=== PATIENT | male | born 1980 | race Two or more races ===

== ENCOUNTER 2020-09-15 12:14 | Emergency (ER) | payer MEDICAID ==
[~2020-09-15] VITALS: Ht 170.2 cm; Wt 72.6 kg
--- NOTE | 2020-09-15 12:24 | NUR ---
[email or web address], medical screening exam in progress
--- NOTE | 2020-09-15 13:23 | NUR ---
Crutches were dispensed. Patient was instructed with certified court interpreter Estela (toll bridge operator/ER registration staff) on proper use of crutches. Patient was able to demonstrate correct use of crutches. Patient discharged to home in stable condition. Written and verbal after care instructions were given in Occitan as well. Patient verbalized understanding & compliance of instructions. Stressed follow up with Dr Borja or any orthopedic doctor and return to ER for worsening s/s.
== END 2020-09-15 13:27 | disposition home or self-care (01) ==
LOC: ER 12:17
DX: S82.64XA Nondisplaced fracture of lateral malleolus of right fibula, initial encounter for closed fracture (principal); S82.831A Other fracture of upper and lower end of right fibula, initial encounter for closed fracture; X50.1XXA Overexertion from prolonged static or awkward postures, initial encounter; Y92.89 Other specified places as the place of occurrence of the external cause
CPT/HCPCS: 73610; A4663